=== PATIENT | female | born 1990 | race Caucasian/White ===

== ENCOUNTER 2017-05-15 11:36 | Emergency (ER) | payer BC ==
[~2017-05-15] VITALS: Wt 68.0 kg
--- NOTE | 2017-05-15 12:44 | RADRPT ---
PROCEDURE: US Abdomen. CLINICAL INDICATION: Abdominal pain TECHNIQUE: Multiple real-time images were acquired of the patient's abdomen and right lower quadra nt utilizing a high resolution transducer. COMPARISON: None FINDINGS: The appendix is not visualized. There is normal bowel seen in the right lower abdomen. No free fluid is identified. RPTAT: AA IMPRESSION: No ultrasound evidence of appendicitis. If there is a high clinical suspicion for appendicitis, cross-sectional imaging is recommended. .Joe Luna MD, MD Date Time Electronically viewed and signed by .Joe Luna MD, on 05/15/2017 12:44 .S/
--- NOTE | 2017-05-15 13:33 | RADRPT ---
PROCEDURE: US Pelvis Transabdominal and Transvaginal. CLINICAL INDICATION: Right pelvic pain. TECHNIQUE: Multiple sonographic images of the pelvis were obtained utilizing bacon scale, Doppler a nd color flow imaging with transabdominal and endovaginal technique. The images were reviewed on a PACS workstation. COMPARISON: None. FINDINGS: The uterus is visualized and measures 7.1 x 3.5 x 4.2 cm. The endometrial echo complex measures mm in thickness. Echogenic IUD is identified in the endometrial canal. No uterine masses are identified . The right ovary measures 7.9 x 4.1 x 5.3 cm . The left ovary measures 3.0 x 1.7 x 2.3 cm. A 5.6 cm cyst containing a small amount of echogenic debris is identified on the right ovary. An additional 1.9 cm cyst containing a small amount of echogenic debris is also seen on the right ovary. Both ovar ies demonstrate normal vascularity. A 2.8 cm simple appearing cyst is identified in the left adnexa. IMPRESSION: Echogenic IUD in the endometrial canal. 5.6 cm complex cyst containing a small amount of echogenic debris on the right ovary and an addition al 1.9 cm complex cyst containing a small amount of echogenic debris on the right ovary. These could reflect a large hemorrhagic cysts. Continued follow-up with repeat exam in 8 - 12 weeks to assess s tability is recommended. 2.8 cm simple appearing cyst in the left adnexa. This could reflect a left paraovarian cyst or mesen teric cyst. Continued follow-up to assess stability can be considered. If further characterization of the organs of the pelvis is needed MRI should be considered. RPTAT: AA .Rafy Harvey MD, MD Date Time Electronically viewed and signed by .Rafy Harvey MD, MD on 05/15/2017 13:33 .P/
[2017-05-15] MEDS ORDERED: IBUP-1542 PO (13:50)
[2017-05-15] MEDS ORDERED: HYDR-906 PO (13:56)
[2017-05-15] MEDS ORDERED: HYDROCODONE/APAP (5/325) TAB PO ONE (14:00)
[2017-05-15 14:31] VITALS: BP 121/72; PULSE 59; RESP 15
--- NOTE | 2017-05-15 19:24 | ERD ---
ER Documentation Chief Complaint Chief Complaint r. sided pelvic pain w n/v, hx of ovarian cyst HPI 27-year-old female complaining of right pelvic/right lower quadrant abdominal pain since last night. Pain is intermittent, and sharp. She had nausea, and vomited twice. Patient has Faustina IUD placed 6 weeks ago, her period has been irregular since. She reports history of ovarian cysts. Denies fever or chills. Denies dysuria. Denies diarrhea. ROS All systems reviewed and are negative except as per history of present illness. Medications Home Meds Active Scripts Hydrocodone/Acetaminophen (Azalea 5-325 Tablet) 1 Each Tablet, 1 TAB PO Q6H Y for PAIN, #7 TAB Prov:ANTONI CHILDRESS. COAL CUTTING MACHINE OPERATOR 05/15/17 Ibuprofen* (Motrin*) 600 Mg Tab, 600 MG PO Q6H Y for PAIN AND OR ELEVATED TEMP, #30 TAB Prov:ANTONI CHILDRESS. COAL CUTTING MACHINE OPERATOR 05/15/17 Allergies Allergies: Coded Allergies: No Known Allergy (Unverified , 05/15/17) PMhx/Soc Medical and Surgical Hx: pt denies Medical Hx, pt denies Surgical Hx Hx Alcohol Use: Yes (social) Hx Substance Use: No Hx Tobacco Use: No Smoking Status: Never smoker Physical Exam Vitals Vital Signs Date Time Temp Pulse Resp B/P Pulse Ox O2 Delivery O2 Flow Rate FiO2 05/15/17 14:31 59 15 121/72 100 Room Air 05/15/17 11:38 99.0 73 20 131/72 97 Physical Exam General: Well-developed, well-nourished, conscious and coherent, in no distress Skin: Warm and dry without rash, good texture and turgor Head: Normocephalic without evidence of trauma Eyes: Sclera and conjunctivae normal; pupils equal, round, and reactive to light; extraocular movements are intact Chest: Normal AP diameter. Good expansion without retractions. Nontender. Lungs are clear to auscultate bilaterally with good tidal volume Heart: Regular rate and rhythm. No murmur, rub, or gallops heard Abdomen: Soft, left lower quadrant and right lower quadrant tenderness without masses, guarding, or rebound. Bowel sounds are active. No hepatosplenomegaly Back: Without spinal or CVA tenderness Extremities: Full range of motion. Good strength bilaterally. No clubbing, cyanosis, or edema. Peripheral pulses are intact. Sensation intact Neuro: Alert and oriented 4, GCS 15. Cranial nerves grossly intact. Motor and sensory exams nonfocal. Moves all extremities. Speech clear. Gait normal Result Diagram: 05/15/17 1220 05/15/17 1220 Results 24 hrs Laboratory Tests Test 05/15/17 12:20 White Blood Count 5.910^3/ul Red Blood Count 4.2910^6/ul Hemoglobin 14.1g/dl Hematocrit 40.2% Mean Corpuscular Volume 93.7fl Mean Corpuscular Hemoglobin 32.9pg Mean Corpuscular Hemoglobin Concent 35.1g/dl Red Cell Distribution Width 12.0% Platelet Count 08294^3/UL Mean Platelet Volume 9.5fl Neutrophils % 67.7% Lymphocytes % 22.2% Monocytes % 8.5% Eosinophils % 0.7% Basophils % 0.7% Nucleated Red Blood Cells % 0.0/100WBC Neutrophils # 4.010^3/ul Lymphocytes # 1.310^3/ul Monocytes # 0.510^3/ul Eosinophils # 0.010^3/ul Basophils # 0.010^3/ul Nucleated Red Blood Cells # 0.010^3/ul Urine Color YELLOW Urine Clarity CLEAR Urine pH 7.0 Urine Specific [place] 1.018 Urine Ketones NEGATIVEmg/dL Urine Nitrite NEGATIVEmg/dL Urine Bilirubin NEGATIVEmg/dL Urine Urobilinogen NEGATIVEmg/dL Urine Leukocyte Esterase TRACELeu/ul Urine Microscopic RBC 0/HPF Urine Microscopic WBC 2/HPF Urine Squamous Epithelial Cells FEW/HPF Urine Bacteria FEW/HPF Urine Hemoglobin NEGATIVEmg/dL Urine Glucose NEGATIVEmg/dL Urine Total Protein NEGATIVEmg/dl Sodium Level 143mmol/L Potassium Level 4.2mmol/L Chloride Level 103mmol/L Carbon Dioxide Level 27mmol/L Anion Gap 17 Blood Urea Nitrogen 10mg/dl Creatinine 0.88mg/dl Glucose Level 90mg/dl Calcium Level 10.1mg/dl Total Bilirubin 0.8mg/dl Direct Bilirubin 0.00mg/dl Indirect Bilirubin 0.8mg/dl Aspartate Amino Transf (AST/SGOT) 23IU/L Alanine Aminotransferase (ALT/SGPT) 28IU/L Alkaline Phosphatase 74IU/L Total Protein 8.2g/dl Albumin 5.3g/dl Globulin 2.90g/dl Albumin/Globulin Ratio 1.82 Lipase 109U/L Current Medications Medications (Trade) Dose Ordered Sig/Brooke Route PRN Reason Start Time Stop Time Status Last Admin Dose Admin Acetaminophen/ Hydrocodone Bitart (Azalea (5/325)) 1 tab ONCE ONCE PO 05/15/17 14:00 05/15/17 14:01 DC 05/15/17 14:00 PROCEDURE: US Abdomen. CLINICAL INDICATION: Abdominal pain TECHNIQUE: Multiple real-time images were acquired of the patient's abdomen and right lower quadrant utilizing a high resolution transducer. COMPARISON: None FINDINGS: The appendix is not visualized. There is normal bowel seen in the right lower abdomen. No free fluid is identified. RPTAT: AA IMPRESSION: No ultrasound evidence of appendicitis. If there is a high clinical suspicion for appendicitis, cross-sectional imaging is recommended. .Joe Luna MD, MD Date Time Electronically viewed and signed by .Joe Luna MD, MD on 05/15/2017 12: 44 .S/ CC: ANTONI CHILDRESS NP PROCEDURE: US Pelvis Transabdominal and Transvaginal. CLINICAL INDICATION: Right pelvic pain. TECHNIQUE: Multiple sonographic images of the pelvis were obtained utilizing bacon scale, Doppler and color flow imaging with transabdominal and endovaginal technique. The images were reviewed on a PACS workstation. COMPARISON: None. FINDINGS: The uterus is visualized and measures 7.1 x 3.5 x 4.2 cm. The endometrial echo complex measures mm in thickness. Echogenic IUD is identified in the endometrial canal. No uterine masses are identified. The right ovary measures 7.9 x 4.1 x 5.3 cm . The left ovary measures 3.0 x 1.7 x 2.3 cm. A 5.6 cm cyst containing a small amount of echogenic debris is identified on the right ovary. An additional 1.9 cm cyst containing a small amount of echogenic debris is also seen on the right ovary. Both ovaries demonstrate normal vascularity. A 2.8 cm simple appearing cyst is identified in the left adnexa. IMPRESSION: Echogenic IUD in the endometrial canal. 5.6 cm complex cyst containing a small amount of echogenic debris on the right ovary and an additional 1.9 cm complex cyst containing a small amount of echogenic debris on the right ovary. These could reflect a large hemorrhagic cysts. Continued follow-up with repeat exam in 8 - 12 weeks to assess stability is recommended. 2.8 cm simple appearing cyst in the left adnexa. This could reflect a left paraovarian cyst or mesenteric cyst. Continued follow-up to assess stability can be considered. If further characterization of the organs of the pelvis is needed MRI should be considered. RPTAT: AA .Rafy Harvey MD, Date Time Electronically viewed and signed by .Rafy Harvey MD, on 05/15/2017 13:33 .P/ CC: ANTONI CHILDRESS. COAL CUTTING MACHINE OPERATOR Procedures/MDM Well-appearing 27-year-old female complaining of right lower quadrant/right pelvic pain since yesterday. She was sent here by her PCP to rule out appendicitis. CBC, CMP, lipase, and UA are unremarkable. There is trace leukocyte on UA, likely due to dirty catch urine. Patient does not have any dysuria, I doubt she has urinary tract infection. Abdominal ultrasound did not visualize the appendix. However, given that patient is afebrile, and no leukocytosis, I have low suspicion for acute appendicitis. Ultrasound showed a large 5.6 cm complex cyst in the right ovary, could reflect a large hemorrhagic cyst. There is also a 2.8 cm simple cyst in the left adnexa. Patient's urine test is negative, I have low suspicion for ectopic . Patient was given Azalea 5/325 p.o. in the ED for pain. Patient is advised to follow-up with a jewelry casting model maker for repeat pelvic ultrasound in 8-12 weeks. Patient also advised to return to ED if she has sudden onset severe and constant pelvic pain. Patient appears well, stable for discharge and outpatient management. Medical decision making shared with patient and family. Education provided to patient and family. Patient and family expressed understanding of the plan. Medications on discharge: Ibuprofen, Az[place]a. Follow-up: Primary care provider in 2-3 days or return to ED if worse. Disclaimer: Inadvertent spelling and grammatical errors are likely due to EHR/ dictation software use and do not reflect on the overall quality of patient care. Also, please note that the electronic time recorded on this note does not necessarily reflect the actual time of the patient encounter. Departure Diagnosis: Primary Impression: Ovarian cyst Additional Impression: IUD (intrauterine device) in place Condition: Stable Patient Instructions: Ovarian Cyst Referrals: [facility] YOU HAVE RECEIVED A MEDICAL SCREENING EXAM AND THE RESULTS INDICATE THAT YOU DO NOT HAVE A CONDITION THAT REQUIRES URGENT TREATMENT IN THE EMERGENCY DEPARTMENT. FURTHER EVALUATION AND TREATMENT OF YOUR CONDITION CAN WAIT UNTIL YOU ARE SEEN IN YOUR DOCTORS OFFICE WITHIN THE NEXT 1-2 DAYS. IT IS YOUR RESPONSIBILITY TO MAKE AN APPOINTMENT FOR FOLOW-UP CARE. IF YOU HAVE A PRIMARY DOCTOR --you should call your primary doctor and schedule an appointment IF YOU DO NOT HAVE A PRIMARY DOCTOR YOU CAN CALL OUR PHYSICIAN REFERRAL HOTLINE AT IF YOU CAN NOT AFFORD TO SEE A PHYSICIAN YOU CAN CHOSE FROM THE FOLLOWING [facility] [address] [facility]. [facility] [address] [facility]. [facility] [address] [facility]. [facility] [address] [facility]. [facility] [address] [facility] [facility] CARPENTRY SUPERVISOR [place] [address] [facility] [address] [place] [address] OFFICE FAX ILA GARCIA [address] [place] [address] DR[address] MCCANN [place] [address] [place], [place] [phone] DR ULLOA, HESHMAT [address], [address], [place] [address] CHARLEY HOBBSOZ [address] [facility] [place] [address] [facility] [place] [address] [place] [address] [address] [facility], [place] [id number] - [address] MATSON, JESSICA [address], [facility] [address] [address] MON, BRITANY [address] [facility]. [address], [facility] [address] [address] MANUEL, [facility] [address] [place], [place] [phone] Additional Instructions: Call your primary care doctor TOMORROW for an appointment during the next 2-3 days.See the doctor sooner or return here if your condition worsens before your appointment time. ANTONI CHILDRESS NP May 15, 2017 19:24
--- NOTE | 2017-05-15 19:24 | ERD ---
ER Documentation Chief Complaint Chief Complaint r. sided pelvic pain w n/v, hx of ovarian cyst HPI 27-year-old female complaining of right pelvic/right lower quadrant abdominal pain since last night. Pain is intermittent, and sharp. She had nausea, and vomited twice. Patient has Faustina IUD placed 6 weeks ago, her period has been irregular since. She reports history of ovarian cysts. Denies fever or chills. Denies dysuria. Denies diarrhea. ROS All systems reviewed and are negative except as per history of present illness. Medications Home Meds Active Scripts Hydrocodone/Acetaminophen ([place] 5-325 Tablet) 1 Each Tablet, 1 TAB PO Q6H Y for PAIN, #7 TAB Prov:ANTONI CHILDRESS. CLEANING MAID 05/15/17 Ibuprofen* (Motrin*) 600 Mg Tab, 600 MG PO Q6H Y for PAIN AND OR ELEVATED TEMP, #30 TAB Prov:ANTONI CHILDRESS. CLEANING MAID 05/15/17 Allergies Allergies: Coded Allergies: No Known Allergy (Unverified , 05/15/17) PMhx/Soc Medical and Surgical Hx: pt denies Medical Hx, pt denies Surgical Hx Hx Alcohol Use: Yes (social) Hx Substance Use: No Hx Tobacco Use: No Smoking Status: Never smoker Physical Exam Vitals Vital Signs Date Time Temp Pulse Resp B/P Pulse Ox O2 Delivery O2 Flow Rate FiO2 05/15/17 14:31 59 15 121/72 100 Room Air 05/15/17 11:38 99.0 73 20 131/72 97 Physical Exam General: Well-developed, well-nourished, conscious and coherent, in no distress Skin: Warm and dry without rash, good texture and turgor Head: Normocephalic without evidence of trauma Eyes: Sclera and conjunctivae normal; pupils equal, round, and reactive to light; extraocular movements are intact Chest: Normal AP diameter. Good expansion without retractions. Nontender. Lungs are clear to auscultate bilaterally with good tidal volume Heart: Regular rate and rhythm. No murmur, rub, or gallops heard Abdomen: Soft, left lower quadrant and right lower quadrant tenderness without masses, guarding, or rebound. Bowel sounds are active. No hepatosplenomegaly Back: Without spinal or CVA tenderness Extremities: Full range of motion. Good strength bilaterally. No clubbing, cyanosis, or edema. Peripheral pulses are intact. Sensation intact Neuro: Alert and oriented 4, GCS 15. Cranial nerves grossly intact. Motor and sensory exams nonfocal. Moves all extremities. Speech clear. Gait normal Result Diagram: 05/15/17 1220 05/15/17 1220 Results 24 hrs Laboratory Tests Test 05/15/17 12:20 White Blood Count 5.910^3/ul Red Blood Count 4.2910^6/ul Hemoglobin 14.1g/dl Hematocrit 40.2% Mean Corpuscular Volume 93.7fl Mean Corpuscular Hemoglobin 32.9pg Mean Corpuscular Hemoglobin Concent 35.1g/dl Red Cell Distribution Width 12.0% Platelet Count 47381^3/UL Mean Platelet Volume 9.5fl Neutrophils % 67.7% Lymphocytes % 22.2% Monocytes % 8.5% Eosinophils % 0.7% Basophils % 0.7% Nucleated Red Blood Cells % 0.0/100WBC Neutrophils # 4.010^3/ul Lymphocytes # 1.310^3/ul Monocytes # 0.510^3/ul Eosinophils # 0.010^3/ul Basophils # 0.010^3/ul Nucleated Red Blood Cells # 0.010^3/ul Urine Color YELLOW Urine Clarity CLEAR Urine pH 7.0 Urine Specific [place] 1.018 Urine Ketones NEGATIVEmg/dL Urine Nitrite NEGATIVEmg/dL Urine Bilirubin NEGATIVEmg/dL Urine Urobilinogen NEGATIVEmg/dL Urine Leukocyte Esterase TRACELeu/ul Urine Microscopic RBC 0/HPF Urine Microscopic WBC 2/HPF Urine Squamous Epithelial Cells FEW/HPF Urine Bacteria FEW/HPF Urine Hemoglobin NEGATIVEmg/dL Urine Glucose NEGATIVEmg/dL Urine Total Protein NEGATIVEmg/dl Sodium Level 143mmol/L Potassium Level 4.2mmol/L Chloride Level 103mmol/L Carbon Dioxide Level 27mmol/L Anion Gap 17 Blood Urea Nitrogen 10mg/dl Creatinine 0.88mg/dl Glucose Level 90mg/dl Calcium Level 10.1mg/dl Total Bilirubin 0.8mg/dl Direct Bilirubin 0.00mg/dl Indirect Bilirubin 0.8mg/dl Aspartate Amino Transf (AST/SGOT) 23IU/L Alanine Aminotransferase (ALT/SGPT) 28IU/L Alkaline Phosphatase 74IU/L Total Protein 8.2g/dl Albumin 5.3g/dl Globulin 2.90g/dl Albumin/Globulin Ratio 1.82 Lipase 109U/L Current Medications Medications (Trade) Dose Ordered Sig/Brooke Route PRN Reason Start Time Stop Time Status Last Admin Dose Admin Acetaminophen/ Hydrocodone Bitart ([place] (5/325)) 1 tab ONCE ONCE PO 05/15/17 14:00 05/15/17 14:01 DC 05/15/17 14:00 PROCEDURE: US Abdomen. CLINICAL INDICATION: Abdominal pain TECHNIQUE: Multiple real-time images were acquired of the patient's abdomen and right lower quadrant utilizing a high resolution transducer. COMPARISON: None FINDINGS: The appendix is not visualized. There is normal bowel seen in the right lower abdomen. No free fluid is identified. RPTAT: AA IMPRESSION: No ultrasound evidence of appendicitis. If there is a high clinical suspicion for appendicitis, cross-sectional imaging is recommended. .Joe Luna MD, MD Date Time Electronically viewed and signed by .Joe Luna MD, MD on 05/15/2017 12: 44 .S/ CC: ANTONI CHILDRESS NP PROCEDURE: US Pelvis Transabdominal and Transvaginal. CLINICAL INDICATION: Right pelvic pain. TECHNIQUE: Multiple sonographic images of the pelvis were obtained utilizing bacon scale, Doppler and color flow imaging with transabdominal and endovaginal technique. The images were reviewed on a PACS workstation. COMPARISON: None. FINDINGS: The uterus is visualized and measures 7.1 x 3.5 x 4.2 cm. The endometrial echo complex measures mm in thickness. Echogenic IUD is identified in the endometrial canal. No uterine masses are identified. The right ovary measures 7.9 x 4.1 x 5.3 cm . The left ovary measures 3.0 x 1.7 x 2.3 cm. A 5.6 cm cyst containing a small amount of echogenic debris is identified on the right ovary. An additional 1.9 cm cyst containing a small amount of echogenic debris is also seen on the right ovary. Both ovaries demonstrate normal vascularity. A 2.8 cm simple appearing cyst is identified in the left adnexa. IMPRESSION: Echogenic IUD in the endometrial canal. 5.6 cm complex cyst containing a small amount of echogenic debris on the right ovary and an additional 1.9 cm complex cyst containing a small amount of echogenic debris on the right ovary. These could reflect a large hemorrhagic cysts. Continued follow-up with repeat exam in 8 - 12 weeks to assess stability is recommended. 2.8 cm simple appearing cyst in the left adnexa. This could reflect a left paraovarian cyst or mesenteric cyst. Continued follow-up to assess stability can be considered. If further characterization of the organs of the pelvis is needed MRI should be considered. RPTAT: AA .Rafy Harvey MD, Date Time Electronically viewed and signed by .Rafy Harvey MD, on 05/15/2017 13:33 .P/ CC: ANTONI CHILDRESS. CLEANING MAID Procedures/MDM Well-appearing 27-year-old female complaining of right lower quadrant/right pelvic pain since yesterday. She was sent here by her PCP to rule out appendicitis. CBC, CMP, lipase, and UA are unremarkable. There is trace leukocyte on UA, likely due to dirty catch urine. Patient does not have any dysuria, I doubt she has urinary tract infection. Abdominal ultrasound did not visualize the appendix. However, given that patient is afebrile, and no leukocytosis, I have low suspicion for acute appendicitis. Ultrasound showed a large 5.6 cm complex cyst in the right ovary, could reflect a large hemorrhagic cyst. There is also a 2.8 cm simple cyst in the left adnexa. Patient's urine test is negative, I have low suspicion for ectopic . Patient was given [place] 5/325 p.o. in the ED for pain. Patient is advised to follow-up with a pinner printed circuit boards for repeat pelvic ultrasound in 8-12 weeks. Patient also advised to return to ED if she has sudden onset severe and constant pelvic pain. Patient appears well, stable for discharge and outpatient management. Medical decision making shared with patient and family. Education provided to patient and family. Patient and family expressed understanding of the plan. Medications on discharge: Ibuprofen, [place]. Follow-up: Primary care provider in 2-3 days or return to ED if worse. Disclaimer: Inadvertent spelling and grammatical errors are likely due to EHR/ dictation software use and do not reflect on the overall quality of patient care. Also, please note that the electronic time recorded on this note does not necessarily reflect the actual time of the patient encounter. Departure Diagnosis: Primary Impression: Ovarian cyst Additional Impression: IUD (intrauterine device) in place Condition: Stable Patient Instructions: Ovarian Cyst Referrals: COUNTS INCLUDE 234 BEDS AT THE [facility] YOU HAVE RECEIVED A MEDICAL SCREENING EXAM AND THE RESULTS INDICATE THAT YOU DO NOT HAVE A CONDITION THAT REQUIRES URGENT TREATMENT IN THE EMERGENCY DEPARTMENT. FURTHER EVALUATION AND TREATMENT OF YOUR CONDITION CAN WAIT UNTIL YOU ARE SEEN IN YOUR DOCTORS OFFICE WITHIN THE NEXT 1-2 DAYS. IT IS YOUR RESPONSIBILITY TO MAKE AN APPOINTMENT FOR FOLOW-UP CARE. IF YOU HAVE A PRIMARY DOCTOR --you should call your primary doctor and schedule an appointment IF YOU DO NOT HAVE A PRIMARY DOCTOR YOU CAN CALL OUR PHYSICIAN REFERRAL HOTLINE AT IF YOU CAN NOT AFFORD TO SEE A PHYSICIAN YOU CAN CHOSE FROM THE FOLLOWING [facility]ICS [facility] [address] [facility]. [facility] [address] [facility]. [facility] [address] [facility]. [facility] [address] [facility]. [facility] [address] [facility]. [facility] FIELD REPORTER [place] [address] [facility] [address] [place] [address] OFFICE FAX ILA GARCIA [address] [place] [address] DR. MCCANN [place] [address] [place], [place] [phone] DR ULLOA, HESHMAT [address], [address], [place] [address] CHARLEY HOBBSOZ [address] [address] [facility] [place] [address] [facility] [address] [place] [address] [address] [facility], [facility] [id number] - DR MATSON, JESSICA [address], [facility] [address] [address] MON, BRITANY [address] [facility]. [address], [facility] [address] [address] MANUEL, [facility] [address] [place], [place] [id number] Additional Instructions: Call your primary care doctor TOMORROW for an appointment during the next 2-3 days.See the doctor sooner or return here if your condition worsens before your appointment time. ANTONI CHILDRESS NP May 15, 2017 19:24
--- NOTE | 2017-05-15 19:24 | ERD ---
ER Documentation Chief Complaint Chief Complaint r. sided pelvic pain w n/v, hx of ovarian cyst HPI 27-year-old female complaining of right pelvic/right lower quadrant abdominal pain since last night. Pain is intermittent, and sharp. She had nausea, and vomited twice. Patient has Faustina IUD placed 6 weeks ago, her period has been irregular since. She reports history of ovarian cysts. Denies fever or chills. Denies dysuria. Denies diarrhea. ROS All systems reviewed and are negative except as per history of present illness. Medications Home Meds Active Scripts Hydrocodone/Acetaminophen ([place] 5-325 Tablet) 1 Each Tablet, 1 TAB PO Q6H Y for PAIN, #7 TAB Prov:ANTONI CHILDRESS. [employer] 05/15/17 Ibuprofen* (Motrin*) 600 Mg Tab, 600 MG PO Q6H Y for PAIN AND OR ELEVATED TEMP, #30 TAB Prov:ANTONI CHILDRESS. [employer] 05/15/17 Allergies Allergies: Coded Allergies: No Known Allergy (Unverified , 05/15/17) PMhx/Soc Medical and Surgical Hx: pt denies Medical Hx, pt denies Surgical Hx Hx Alcohol Use: Yes (social) Hx Substance Use: No Hx Tobacco Use: No Smoking Status: Never smoker Physical Exam Vitals Vital Signs Date Time Temp Pulse Resp B/P Pulse Ox O2 Delivery O2 Flow Rate FiO2 05/15/17 14:31 59 15 121/72 100 Room Air 05/15/17 11:38 99.0 73 20 131/72 97 Physical Exam General: Well-developed, well-nourished, conscious and coherent, in no distress Skin: Warm and dry without rash, good texture and turgor Head: Normocephalic without evidence of trauma Eyes: Sclera and conjunctivae normal; pupils equal, round, and reactive to light; extraocular movements are intact Chest: Normal AP diameter. Good expansion without retractions. Nontender. Lungs are clear to auscultate bilaterally with good tidal volume Heart: Regular rate and rhythm. No murmur, rub, or gallops heard Abdomen: Soft, left lower quadrant and right lower quadrant tenderness without masses, guarding, or rebound. Bowel sounds are active. No hepatosplenomegaly Back: Without spinal or CVA tenderness Extremities: Full range of motion. Good strength bilaterally. No clubbing, cyanosis, or edema. Peripheral pulses are intact. Sensation intact Neuro: Alert and oriented 4, GCS 15. Cranial nerves grossly intact. Motor and sensory exams nonfocal. Moves all extremities. Speech clear. Gait normal Result Diagram: 05/15/17 1220 05/15/17 1220 Results 24 hrs Laboratory Tests Test 05/15/17 12:20 White Blood Count 5.910^3/ul Red Blood Count 4.2910^6/ul Hemoglobin 14.1g/dl Hematocrit 40.2% Mean Corpuscular Volume 93.7fl Mean Corpuscular Hemoglobin 32.9pg Mean Corpuscular Hemoglobin Concent 35.1g/dl Red Cell Distribution Width 12.0% Platelet Count 17943^3/UL Mean Platelet Volume 9.5fl Neutrophils % 67.7% Lymphocytes % 22.2% Monocytes % 8.5% Eosinophils % 0.7% Basophils % 0.7% Nucleated Red Blood Cells % 0.0/100WBC Neutrophils # 4.010^3/ul Lymphocytes # 1.310^3/ul Monocytes # 0.510^3/ul Eosinophils # 0.010^3/ul Basophils # 0.010^3/ul Nucleated Red Blood Cells # 0.010^3/ul Urine Color YELLOW Urine Clarity CLEAR Urine pH 7.0 Urine Specific [place] 1.018 Urine Ketones NEGATIVEmg/dL Urine Nitrite NEGATIVEmg/dL Urine Bilirubin NEGATIVEmg/dL Urine Urobilinogen NEGATIVEmg/dL Urine Leukocyte Esterase TRACELeu/ul Urine Microscopic RBC 0/HPF Urine Microscopic WBC 2/HPF Urine Squamous Epithelial Cells FEW/HPF Urine Bacteria FEW/HPF Urine Hemoglobin NEGATIVEmg/dL Urine Glucose NEGATIVEmg/dL Urine Total Protein NEGATIVEmg/dl Sodium Level 143mmol/L Potassium Level 4.2mmol/L Chloride Level 103mmol/L Carbon Dioxide Level 27mmol/L Anion Gap 17 Blood Urea Nitrogen 10mg/dl Creatinine 0.88mg/dl Glucose Level 90mg/dl Calcium Level 10.1mg/dl Total Bilirubin 0.8mg/dl Direct Bilirubin 0.00mg/dl Indirect Bilirubin 0.8mg/dl Aspartate Amino Transf (AST/SGOT) 23IU/L Alanine Aminotransferase (ALT/SGPT) 28IU/L Alkaline Phosphatase 74IU/L Total Protein 8.2g/dl Albumin 5.3g/dl Globulin 2.90g/dl Albumin/Globulin Ratio 1.82 Lipase 109U/L Current Medications Medications (Trade) Dose Ordered Sig/Brooke Route PRN Reason Start Time Stop Time Status Last Admin Dose Admin Acetaminophen/ Hydrocodone Bitart ([place] (5/325)) 1 tab ONCE ONCE PO 05/15/17 14:00 05/15/17 14:01 DC 05/15/17 14:00 PROCEDURE: US Abdomen. CLINICAL INDICATION: Abdominal pain TECHNIQUE: Multiple real-time images were acquired of the patient's abdomen and right lower quadrant utilizing a high resolution transducer. COMPARISON: None FINDINGS: The appendix is not visualized. There is normal bowel seen in the right lower abdomen. No free fluid is identified. RPTAT: AA IMPRESSION: No ultrasound evidence of appendicitis. If there is a high clinical suspicion for appendicitis, cross-sectional imaging is recommended. .Joe Luna MD, MD Date Time Electronically viewed and signed by .Joe Luna MD, MD on 05/15/2017 12: 44 .S/ CC: ANTONI CHILDRESS NP PROCEDURE: US Pelvis Transabdominal and Transvaginal. CLINICAL INDICATION: Right pelvic pain. TECHNIQUE: Multiple sonographic images of the pelvis were obtained utilizing bacon scale, Doppler and color flow imaging with transabdominal and endovaginal technique. The images were reviewed on a PACS workstation. COMPARISON: None. FINDINGS: The uterus is visualized and measures 7.1 x 3.5 x 4.2 cm. The endometrial echo complex measures mm in thickness. Echogenic IUD is identified in the endometrial canal. No uterine masses are identified. The right ovary measures 7.9 x 4.1 x 5.3 cm . The left ovary measures 3.0 x 1.7 x 2.3 cm. A 5.6 cm cyst containing a small amount of echogenic debris is identified on the right ovary. An additional 1.9 cm cyst containing a small amount of echogenic debris is also seen on the right ovary. Both ovaries demonstrate normal vascularity. A 2.8 cm simple appearing cyst is identified in the left adnexa. IMPRESSION: Echogenic IUD in the endometrial canal. 5.6 cm complex cyst containing a small amount of echogenic debris on the right ovary and an additional 1.9 cm complex cyst containing a small amount of echogenic debris on the right ovary. These could reflect a large hemorrhagic cysts. Continued follow-up with repeat exam in 8 - 12 weeks to assess stability is recommended. 2.8 cm simple appearing cyst in the left adnexa. This could reflect a left paraovarian cyst or mesenteric cyst. Continued follow-up to assess stability can be considered. If further characterization of the organs of the pelvis is needed MRI should be considered. RPTAT: AA .Rafy Harvey MD, Date Time Electronically viewed and signed by .Rafy Harvey MD, on 05/15/2017 13:33 .P/ CC: ANTONI CHILDRESS. [employer] Procedures/MDM Well-appearing 27-year-old female complaining of right lower quadrant/right pelvic pain since yesterday. She was sent here by her PCP to rule out appendicitis. CBC, CMP, lipase, and UA are unremarkable. There is trace leukocyte on UA, likely due to dirty catch urine. Patient does not have any dysuria, I doubt she has urinary tract infection. Abdominal ultrasound did not visualize the appendix. However, given that patient is afebrile, and no leukocytosis, I have low suspicion for acute appendicitis. Ultrasound showed a large 5.6 cm complex cyst in the right ovary, could reflect a large hemorrhagic cyst. There is also a 2.8 cm simple cyst in the left adnexa. Patient's urine test is negative, I have low suspicion for ectopic . Patient was given [place] 5/325 p.o. in the ED for pain. Patient is advised to follow-up with a printing plate maker for repeat pelvic ultrasound in 8-12 weeks. Patient also advised to return to ED if she has sudden onset severe and constant pelvic pain. Patient appears well, stable for discharge and outpatient management. Medical decision making shared with patient and family. Education provided to patient and family. Patient and family expressed understanding of the plan. Medications on discharge: Ibuprofen, [place]. Follow-up: Primary care provider in 2-3 days or return to ED if worse. Disclaimer: Inadvertent spelling and grammatical errors are likely due to EHR/ dictation software use and do not reflect on the overall quality of patient care. Also, please note that the electronic time recorded on this note does not necessarily reflect the actual time of the patient encounter. Departure Diagnosis: Primary Impression: Ovarian cyst Additional Impression: IUD (intrauterine device) in place Condition: Stable Patient Instructions: Ovarian Cyst Referrals: [facility] YOU HAVE RECEIVED A MEDICAL SCREENING EXAM AND THE RESULTS INDICATE THAT YOU DO NOT HAVE A CONDITION THAT REQUIRES URGENT TREATMENT IN THE EMERGENCY DEPARTMENT. FURTHER EVALUATION AND TREATMENT OF YOUR CONDITION CAN WAIT UNTIL YOU ARE SEEN IN YOUR DOCTORS OFFICE WITHIN THE NEXT 1-2 DAYS. IT IS YOUR RESPONSIBILITY TO MAKE AN APPOINTMENT FOR FOLOW-UP CARE. IF YOU HAVE A PRIMARY DOCTOR --you should call your primary doctor and schedule an appointment IF YOU DO NOT HAVE A PRIMARY DOCTOR YOU CAN CALL OUR PHYSICIAN REFERRAL HOTLINE AT IF YOU CAN NOT AFFORD TO SEE A PHYSICIAN YOU CAN CHOSE FROM THE FOLLOWING [facility] CL[facility]ICS [facility] [address] [facility]. [facility] [address] [facility] [place] [address] [facility] [address] [facility] [facility] [address] [facility] [employer] [address] [facility] [address] [place] [address] OFFICE FAX ILA GARCIA [address] [place] [address] [address] [place] [address] [place], [place] [id number] [phone] ULLOA, [place] [address], [address], [place] [address] CHARLEY HOBBSOZ [address] [facility] [place] [address] [facility] [address] [place] [address] [address] [facility], [facility] [address] - [address] MATSON, JESSICA [address], [facility] [address] [address] MON, BR[place] [address] [facility]. [address], [facility] [address] [address] MANUEL, [facility] [address] [place], [place] [id number] Additional Instructions: Call your primary care doctor TOMORROW for an appointment during the next 2-3 days.See the doctor sooner or return here if your condition worsens before your appointment time. ANTNOI CHILDRESS NP May 15, 2017 19:24
== END 2017-05-15 14:33 | disposition home or self-care (01) ==
LOC: FTE 11:36
DX: N83.202 Unspecified ovarian cyst, left side (principal); Z97.5 Presence of (intrauterine) contraceptive device
CPT/HCPCS: 36415; 76705; 76830; 76856; 80053; 81001; 83690; 85025